=== PATIENT | male | born 1970 ===

== ENCOUNTER 2016-10-15 07:53 | Emergency (ER) | payer OTHER ==
[2016-10-15 08:14] VITALS: BP 140/80
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
== END 2016-10-15 09:27 | disposition home or self-care (01) ==
LOC: UCEAST 07:53
DX: L40.9 Psoriasis, unspecified (principal); B35.4 Tinea corporis; F17.210 Nicotine dependence, cigarettes, uncomplicated
CPT/HCPCS: 99211; G0463